=== PATIENT | male | born 1960 | race Caucasian/White ===

== ENCOUNTER 2020-02-26 12:00 | Outpatient (REF) | payer OTHER, SELFPAY ==
[2020-02-26 12:50] LABS: MANUAL DIFF FLAG NO
[2020-02-26 12:53] LABS: Basophils Absolute Auto 0.1 X10*3/uL (0.0-0.2); Basophils Percent Auto 0.5 % (0-2); Eosinophils Absolute Auto 0.1 X10*3/uL (0.0-0.4); Eosinophils Percent Auto 0.5 % (0-4); Hematocrit 44.2 % (42-52); Hemoglobin 15.3 g/dl (14.0-18.0); Imm Gran Abs Auto 0.06 X10*3/uL (0.00-0.03); Imm Gran Pct Auto 0.7 % (0.0-0.4); Lymphocytes Absolute Auto 1.7 X10*3/uL (1.2-4.9); Lymphocytes Percent Auto 18.7 % (20-40); Mean Corpuscular HGB Conc 34.6 g/dl (31.0-36.0); Mean Corpuscular Hemoglobin 32.5 pg (27.0-33.0); Mean Corpuscular Volume 93.8 fL (80-98); Mean Platelet Volume 10.2 fL (9.4-12.4); Monocytes Absolute Auto 0.8 X10*3/uL (0.1-1.2); Neutrophils Absolute Auto 6.5 X10*3/uL (2.0-8.3); Neutrophils Percent Auto 70.6 % (45-73); Platelet Count 251 X10*3/uL (160-400); Red Blood Count 4.71 X10*6/uL (4.60-5.80); Red Cell Distribution Width 12.8 % (11.0-16.0); White Blood Count 9.2 X10*3/uL (4.8-10.8)
[2020-02-26 13:44] LABS: Alanine Aminotransferase 27 U/L (0-40); Albumin Level 4.3 g/dL (3.5-5.0); Alkaline Phosphatase 80 U/L (39-117); Anion Gap 13 (12-20); Aspartate Amino Transferase 25 U/L (5-37); Bilirubin Total 0.2 mg/dL (0.0-1.0); Blood Urea Nitrogen 21 mg/dL (9-16); Calcium 9.1 mg/dL (8.4-10.2); Carbon Dioxide 25 mmol/L (22-29); Chloride 104 mmol/L (96-108); Cholesterol 143 mg/dL; Estimated Glomerular Filt Rate > 60; Glucose Fasting 112 mg/dL (60-99); HDL Cholesterol 65 mg/dL; LDL Cholesterol Calculated 73 mg/dl; Potassium 4.3 mmol/l (3.3-5.1); Sodium 138 mmol/L (135-145); Triglycerides 29 mg/dL
[2020-02-27 04:11] LABS: ~Hepatitis C Antibody Nonreactive (Nonreactive)
== END 2020-02-26 12:01 | disposition home or self-care (01) ==
LOC: HO.MANLDS 12:00
PROVIDERS: PCP Internal Medicine; Visit Provider Internal Medicine
DX: Z00.01 Encounter for general adult medical examination with abnormal findings (principal)
CPT/HCPCS: 36415; 80053; 80061; 84153; 85025; 86803

== ENCOUNTER 2021-12-09 10:41 | Outpatient (REF) | payer OTHER, SELFPAY ==
[2021-12-09 13:22] LABS: MANUAL DIFF FLAG NO
[2021-12-09 13:24] LABS: Basophils Absolute Auto 0.1 X10*3/uL (0.0-0.2); Basophils Percent Auto 0.7 % (0-2); Eosinophils Absolute Auto 0.1 X10*3/uL (0.0-0.4); Eosinophils Percent Auto 1.7 % (0-4); Hematocrit 40.3 % (42.0-52.0); Hemoglobin 13.6 g/dl (14.0-18.0); Imm Gran Abs Auto 0.05 X10*3/uL (0.00-0.03); Imm Gran Pct Auto 0.7 % (0.0-0.4); Lymphocytes Absolute Auto 2.1 X10*3/uL (1.2-4.9); Mean Corpuscular HGB Conc 33.7 g/dl (31.0-36.0); Mean Corpuscular Hemoglobin 31.7 pg (27.0-33.0); Mean Corpuscular Volume 93.9 fL (80.0-98.0); Mean Platelet Volume 9.9 fL (9.4-12.4); Monocytes Absolute Auto 0.6 X10*3/uL (0.1-1.2); Monocytes Percent Auto 8.8 % (2-11); Neutrophils Absolute Auto 4.3 x10*3/uL (2.0-8.3); Neutrophils Percent Auto 59.1 % (45-73); Platelet Count 292 X10*3/uL (160-400); Red Blood Count 4.29 X10*6/uL (4.60-5.80); Red Cell Distribution Width 12.9 % (11.0-16.0); White Blood Count 7.2 X10*3/uL (4.8-10.8)
[2021-12-09 14:09] LABS: Alanine Aminotransferase 21 U/L (0-40); Albumin Level 3.7 g/dL (3.5-5.0); Alkaline Phosphatase 81 U/L (39-117); Anion Gap 13 (12-20); Aspartate Amino Transferase 22 U/L (5-37); Bilirubin Total 0.3 mg/dL (0.0-1.0); Blood Urea Nitrogen 15 mg/dL (9-16); Calcium 8.7 mg/dL (8.4-10.2); Carbon Dioxide 26 mmol/L (22-29); Chloride 104 mmol/L (96-108); Cholesterol 127 mg/dL; Estimated Glomerular Filt Rate > 60; Glucose Fasting 101 mg/dL (60-99); HDL Cholesterol 47 mg/dL; LDL Cholesterol Calculated 75 mg/dl; Potassium 4.5 mmol/L (3.3-5.1); Sodium 138 mmol/L (135-145); Total Protein 6.4 g/dL (6.5-8.0); Triglycerides 28 mg/dL
[2021-12-09 14:28] LABS: Thyroid Stimulating Hormone 1.61 uIU/mL (0.32-4.0); Vitamin D 25-OH Total 28.2 ng/mL (>30)
== END 2021-12-09 10:42 | disposition home or self-care (01) ==
LOC: HO.MANLDS 10:41
PROVIDERS: Visit Provider Internal Medicine
DX: Z00.00 Encounter for general adult medical examination without abnormal findings (principal); Z12.5 Encounter for screening for malignant neoplasm of prostate; E78.00 Pure hypercholesterolemia, unspecified
CPT/HCPCS: 36415; 80053; 80061; 82306; 84153; 84443; 85025

== ENCOUNTER 2022-12-23 16:04 | Outpatient (REF) | payer OTHER, SELFPAY ==
[2022-12-23 17:41] LABS: MANUAL DIFF FLAG NO
[2022-12-23 18:05] LABS: Alanine Aminotransferase 33 U/L (0-40); Albumin Level 4.1 g/dL (3.5-5.0); Alkaline Phosphatase 76 U/L (39-117); Anion Gap 12 (12-20); Aspartate Amino Transferase 36 U/L (5-37); Bilirubin Total 0.7 mg/dL (0.0-1.0); Blood Urea Nitrogen 18 mg/dL (9-16); Calcium 9.3 mg/dL (8.4-10.2); Carbon Dioxide 27 mmol/L (22-29); Chloride 105 mmol/L (96-108); Cholesterol 143 mg/dL; Estimated Glomerular Filt Rate > 60; Glucose Random 76 mg/dL (60-115); HDL Cholesterol 77 mg/dL; LDL Cholesterol Calculated 61 mg/dl; Potassium 4.3 mmol/L (3.3-5.1); Sodium 140 mmol/L (135-145); Triglycerides 29 mg/dL
[2022-12-23 18:08] LABS: Basophils Absolute Auto 0.1 X10*3/uL (0.0-0.2); Basophils Percent Auto 0.5 % (0-2); Eosinophils Absolute Auto 0.1 X10*3/uL (0.0-0.4); Eosinophils Percent Auto 1.3 % (0-4); Hematocrit 43.1 % (42.0-52.0); Hemoglobin 14.7 g/dl (14.0-18.0); Imm Gran Abs Auto 0.05 X10*3/uL (0.00-0.03); Imm Gran Pct Auto 0.5 % (0.0-0.4); Lymphocytes Absolute Auto 2.6 X10*3/uL (1.2-4.9); Lymphocytes Percent Auto 27.4 % (20-40); Mean Corpuscular HGB Conc 34.1 g/dl (31.0-36.0); Mean Corpuscular Hemoglobin 32.2 pg (27.0-33.0); Mean Corpuscular Volume 94.5 fL (80.0-98.0); Mean Platelet Volume 10.5 fL (9.4-12.4); Monocytes Percent Auto 10.2 % (2-11); Neutrophils Absolute Auto 5.7 x10*3/uL (2.0-8.3); Neutrophils Percent Auto 60.1 % (45-73); Platelet Count 264 X10*3/uL (160-400); Red Blood Count 4.56 X10*6/uL (4.60-5.80); Red Cell Distribution Width 12.7 % (11.0-16.0); White Blood Count 9.5 X10*3/uL (4.8-10.8)
[2022-12-23 18:22] LABS: Prostate Specific Antigen 0.46 ng/mL (<0.05-4.0)
== END 2022-12-23 16:05 | disposition home or self-care (01) ==
LOC: HO.MANLDS 16:04
PROVIDERS: Visit Provider Internal Medicine
DX: E78.00 Pure hypercholesterolemia, unspecified (principal); I63.9 Cerebral infarction, unspecified
CPT/HCPCS: 36415; 80053; 80061; 84153; 85025

== ENCOUNTER 2024-07-12 10:44 | Outpatient (REF) | payer OTHER, SELFPAY ==
--- OUTSIDE RECORDS SUMMARY | 2024-07-12 12:51 | XMS_ITS | Data Portability ---
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 MUST MEET 2 OUT OF 3 ELEMENTS: PROBLEMS, DATA OR RISK ELEMENT 1: PROBLEMS 1 OR MORE CHRONIC ILLNESS W/SEVERE EXACERBATION, PROGRESSION MAY REQUIRE HOSPITAL LEVEL CARE OR 1 ACUTE OR CHRONIC ILLNESS OR INJURY THAT POSES A THREAT TO LIFE OR BODILY FUNCTION ELEMENT 2: DATA: MUST MEET 2 OF 3 CATEGORIES CATEGORY 1 REVIEW OF PRIOR EXTERNAL NOTES REVIEW OF THE RESULTS ORDERING OF EACH TEST ASSESSMENT REQUIRING INDEPENDENT HISTORIAN(S) CATEGORY 2: INDEPENDENT INTERPRETATION OF TESTS BY ANOTHER PROVIDER/SPECIALI ST CATEGORY 3: DISCUSSION OF MGT OR TEST INTERPRETATION W/EXTERNAL PHYSICIAN/SPECIAL IST ELEMENT 3: RISK HIGH RISK OF MORBIDITY FROM ADDITIONAL DIAGNOSTIC TESTING OR TREATMENT PROVIDER MUST THOROUGHLY DOCUMENT EACH ELEMENT THAT IS COVERED Not available 02/11/2024 12:00:05 03/06/2024 03/06/2024 [id number] [place] [id number]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 REVIEW OF PRIOR EXTERNAL NOTES/RESULTS, ORDERING OF TEST(S) CATEGORY 2. 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) MDM MODERATE MUST MEET 2 OUT OF 3 ELEMENTS: PROBLEMS, DATA OR RISK ELEMENT 1: PROBLEMS ADDRESSED 1 OR MORE CHRONIC ILLNESS WITH EXACERBATION OR 2 OR MORE STABLE CHRONIC ILLNESSES OR 1 UNDIAGNOSED NEW PROBLEM OR 1 ACUTE ILLNESS W/SYMPTOMS OR 1 ACUTE COMPLICATED INJURY ELEMENT 2: DATA MUST MEET 1 OF 3 CATEGORIES CATEGORY 1: REVIEW OF PRIOR EXTERNAL NOTES, REVIEW OF RESULTS, ORDERING OF EACH TEST, ASSESSMENT REQUIRING INDEPENDENT HISTORIAN OR CATEGORY 2: INDEPENDENT INTERPRETATION OF TESTS BY ANOTHER PHYSICIAN OR SPECIALIST OR CATEGORY 3: DISCUSSION OF MGT OR TEST INTERPRETATION W/EXTERNAL PHYSICIAN OR SPECIALIST ELEMENT 3: RISK RISK OF COMPLICATIONS AND/OR MORBIDITY OR MORTALITY OF PATIENT MANAGEMENT PROVIDER MUST THOROUGHLY DOCUMENT EACH ELEMENT THAT IS COVERED Not available 07/12/2024 10:37:32 Plan of Treatment Reminders Order Date Submit Date Provider Last Modified By Organization Details Last Modified Time Details Appointments FOLLOW UP 15 2024 10:15A M DR BALDWIN Not available Not available Not available ANNUAL EXAM 2024 09:30A M DR BALDWIN Not available Not available Not available Lab lipid panel, blood 2024 025 [facility], [address] [place] [address], [id number], 07/12/2024 10:43:35 CMP, serum or plasma 2024 025 [facility], [address] [place] [address], [id number], 07/12/2024 10:43:36 CBC w/ auto diff 2024 025 [facility], [address] [place] [address], [id number], 07/12/2024 10:43:36 PSA, serum or plasma 2024 025 [facility], [address] [place] [address], [id number], 07/12/2024 10:43:35 lipid panel, blood 2023 024 [facility], [address] [place] [address], [id number], 02/11/2024 12:00:23 CMP, serum or plasma 2023 024 [email or web address] 10 [facility], [address] [place] [address], [id number], 02/18/2024 08:40:10 CBC w/ auto diff 2023 024 [facility], [address] [place] [address], [id number], 02/11/2024 12:00:23 CMP, serum or plasma 2022 023 [facility], [address] [place] [address], [id number], 12/24/2022 11:54:30 lipid panel, blood 2022 023 [facility], [address] [place] [address], [id number], 12/24/2022 11:54:30 CBC w/ auto diff 2022 023 [facility], [address] [place] [address], [id number], 12/23/2022 16:05:26 PSA, serum or plasma 2022 023 [facility], [address] [place] [address], 64943, 12/24/2022 11:54:30 lipid panel, blood 2021 022 [facility], [address] [place] [address], [id number], 12/10/2021 12:53:29 lipid panel, blood 2021 023 [facility], [address] [place] [address], [id number], 12/10/2021 12:53:28 CMP, serum or plasma 2021 [facility], [address] [place] [address], [id number], 12/10/2021 12:53:28 CBC w/ auto diff 2021 [facility], [address] [place] [address], 51498, 12/10/2021 12:53:29 PSA, serum or plasma 2021 [email or web address] 10 [facility], [address] [place] [address], 53483, 12/16/2021 08:35:12 vitamin D, 25-hydrox y, total, serum 2021 [facility], [address] [place] [address], [id number], 12/10/2021 12:53:29 TSH, serum or plasma 2021 [facility], [address] [place] [address], [id number], 12/09/2021 10:40:33 Referral None recorded. Procedures None recorded. Surgeries None recorded. Imaging XR, hip, unilatera l, 2 or 3 view 2023 024 [email or web address] Not available 02/25/2024 08:37:40 Medication Orders trazodone 50 mg tablet 2023 024 [id number], [address] [place], [address], 07/12/2024 10:35:17 trazodone 50 mg tablet 2023 024 [id number], [address] [place] [address], [id number], 07/12/2024 10:35:17 lorazepam 0.5 mg tablet 2023 025 [id number], [address] [place], [address], 07/12/2024 10:14:20 Nicorette 4 mg gum 2022 [address]23 [address] [id number] [address] [place], [address], 03/06/2024 12:02:13 Nicorette 4 mg buccal lozenge 2022 [id number], [address] [place], [address], 03/06/2024 12:02:07 Patient TargetsNo targets recorded. Patient Instructions Encounter Date Encounter Id Patient Instructions Last Modified By Organization Details Last Modified Time 12/23/2022 [id number] stroke: care instructions Not available 12/23/2022 16:00:31 Reason for Referral None Reported. Results Created Date Observation Date Name Description Value Unit Range Abnormal Flag Note LastModifiedBy Organization Detail LastModifiedTime Result Notes None recorded. Problems Name Problem SNOMED Code Status Onset Date Resolution Date Notes Provider Name and Address Organization Details Recorded Time Cerebrov ascular accident 258131441 Active 2017 R hempisher ic Not Available [facility] 0 10:31:20 Tobacco user 961479427 Active 2017 Not Available [facility] 0 10:31:20 Anxiety 14009814 Active 2017 Not Available [facility] 0 10:31:20 Bursitis of shoulder 291776694 Active 2017 Not Available [facility] 0 10:31:20 Hypercho lesterol emia 40023136 Active 2017 Not Available [facility] 0 10:31:20 Family history of malignan t neoplasm of lung 114897317 Active 2017 Not Available [facility] 0 10:31:20 Pain of right ankle joint 81207075440 835862 Active 2017 Not Available [facility] 0 10:31:20 Adult hydrocel e 57035001342 105 Active 2017 Not Available [facility] 0 10:31:20 Onychomy cosis of toenails 251085149 Active 2021 Lon Baldwin, DO [address] [place] [address], [phone], [facility] 2 10:36:36 Pain in right hip joint 70333711281 9102 Active 2023 Lon BaldwinDO [address] [place] [address], [phone], [facility] 4 11:57:03 Problem Notes None recorded. Procedures Surgical History Date Name Laterality Status Provider Name and Address Organization Details Recorded Time 3 Colonoscopy completed Saritha Sun [facility] 02/01/2018 08:22:32 Imaging Results None recorded. Procedure Notes None recorded. Medical Equipment None Reported. Allergies Allergen ID Allergen Name Allergen Category Reaction Reaction Severity Criticality Documentation Date Start Date Code Code System Note Provider Name and Address Organization Details Recorded Time 5914 diclofena c Not available itching Not available Not available 12/09/2021 3355 RxNorm Lon BaldwinDO [address] [place], [address], [facility] Internal [facility] 2 09:55:29 Medications Name Sig Start Date Stop Date Status Note LastModified by Organization Details LastModified Time atorvastati n 80 mg tablet TAKE 1 TABLET BY MOUTH EVERY DAY active Not Available Not Available No t Available trazodone 50 mg tablet TAKE 1.5 TABLETS BY MOUTH EVERY DAY 07/12 completed Not Available Not Available Not Available polyethylen e glycol 3350 17 gram oral powder packet 02/07 completed Not Available Not Available Not Available aspirin 325 mg tablet Take 1 tablet every day by oral route. active Not Available Not Available No t Available terbinafine HCl 250 mg tablet TAKE 1 TABLET BY MOUTH EVERY DAY FOR 30 DAYS 03/06 completed Not Available Not Available Not Available amoxicillin 875 mg tablet TAKE 1 TABLET BY MOUTH TWICE A DAY UNTIL FINISHED 12/09 completed Not Available Not Available Not Available lorazepam 0.5 mg tablet TAKE 1 TABLET BY MOUTH TWICE A DAY NEEDED FOR 7 DAYS 07/12 completed Not Available Not Available Not Available nicotine (polacrilex ) 4 mg gum CHEW 1 PIECE OF GUM BY MOUTH EVERY 2 HOURS FOR 30 DAYS 03/06 completed Not Available Not Available Not Available diclofenac sodium 75 mg tablet,usama yed release Take 1 tablet twice a day by oral route with meals for 30 days. 12/09 completed Not Available Not Available Not Available oxycodone 5 mg tablet 02/07 completed Not Available Not Available Not Available nicotine (polacrilex ) 4 mg buccal lozenge DISSOVE 1 LOZENGE EVERY 2 HOURS NEEDED 03/06 completed Not Available Not Available Not Available cyclobenzap rine 5 mg tablet Take 1 tablet 3 times a day by oral route as needed for 30 days. 12/09 completed Not Available Not Available Not Available CoQ10 active Not Available Not Availa ble Not Available vilazodone 10 mg tablet 1 po qd 07/12 completed Not Available Not Available Not Available [employer] Formula active Not Available Not Available Not Available Flucelvax Quad (PF) 60 mcg (15 mcg x 4)/0.5 mL IM syringe 02/01 completed Not Available Not Available Not Available Flucelvax Quad (PF) 60 mcg (15 mcg x 4)/0.5 mL IM syringe 02/07 completed Not Available Not Available Not Available Flucelvax Quad (PF) 60 mcg (15 mcg x 4)/0.5 mL IM syringe 11/12 completed Not Available Not Available Not Available Vitals Date Recorded Body height Body mass index (BMI) Body weight Heart rate Oxygen saturation Oxygen saturation in Arterial blood by Pulse oximetry Systolic blood pressure Diastolic blood pressure Provider Name and Address Organization Details Last Updated DateTime 2 180.34 cm 27.9 kg/m2 90716.7 6 g 58 /min 98 % 98 % 140 mm[Hg] 74 mm[Hg] Lon Baldwin, DO [address] [facility], [place], [address] [facility] 2 09:58:07 Date Recorded Body height Body mass index (BMI) Body weight Heart rate Oxygen saturation Oxygen saturation in Arterial blood by Pulse oximetry Systolic blood pressure Diastolic blood pressure Provider Name and Address Organization Details Last Updated DateTime 3 180.34 cm 27.8 kg/m2 63481.8 8 g 64 /min 96 % 96 % 140 mm[Hg] 80 mm[Hg] Estrella Bahena [facility] 3 15:20:58 Date Recorded Body height Body mass index (BMI) Body weight Heart rate Oxygen saturation Oxygen saturation in Arterial blood by Pulse oximetry Systolic blood pressure Diastolic blood pressure Provider Name and Address Organization Details Last Updated DateTime 4 180.34 cm 24.7 kg/m2 92953.8 5 g 84 /min 97 % 97 % 120 mm[Hg] 80 mm[Hg] Estrella Bahena [facility] 4 11:38:11 Date Recorded Body height Body mass index (BMI) Body weight Heart rate Oxygen saturation Oxygen saturation in Arterial blood by Pulse oximetry Systolic blood pressure Diastolic blood pressure Provider Name and Address Organization Details Last Updated DateTime 4 180.34 cm 25 kg/m2 75243.0 3 g 84 /min 99 % 99 % 152 mm[Hg] 96 mm[Hg] Jonnathan Bryant [facility] 4 12:04:03 Date Recorded Systolic blood pressure Diastolic blood pressure Provider Name and Address Organization Details Last Updated DateTime 03/06/2024 136 mm[Hg] 76 mm[Hg] Lon Baldwin, DO [address] [facility], [place], [address], [facility] 03/06/2024 12:21:24 Date Recorded Body height Body mass index (BMI) Body weight Heart rate Oxygen saturation Oxygen saturation in Arterial blood by Pulse oximetry Systolic blood pressure Diastolic blood pressure Provider Name and Address Organization Details Last Updated DateTime 5 180.34 cm 24.1 kg/m2 18721.4 g 62 /min 97 % 97 % 134 mm[Hg] 82 mm[Hg] Diandra Arredondo [facility] 5 10:18:43 Social History Question Answer Notes LastModified by [facility] Details LastModified Time Tobacco Smoking Status Current Every Day Smoker Saritha Sun [facility] 02/01/2018 10:25:34 What Is Your Level Of Alcohol Consumption? Moderate 2 6 Packs Per Week Information not available 02/01/2018 What Is Your Level Of Caffeine Consumption? Heavy 1 Pot Of Coffee Per Day Information not available 02/01/2018 What Was The Date Of Your Most Recent Tobacco Screening? 07/12/2024 [email or web address] Information not available 07/12/2024 How Much Tobacco Do You Smoke? 1 PPD 8 [employer] Avg. Daily [email or web address] Information not available 03/06/2024 Do You Or Have You Ever Used Any Other Forms Of Tobacco Or Nicotine? No [email or web address] Information not available 12/23/2022 Sex: Unknown Functional Status Question Answer Note LastModified by [employer] Details LastModified Time What is your exercise level? Occasional Information not available 02/01/2018 Mental Status None recorded. Family History Nothing Reported. Medical History No medical history recorded. Immunizations Vaccine Type Date Status Note Provider Nam e and Address Organization Details Recorded Time Influenza, split virus, quadrivalent, preservative 1 completed Crissy Xie [facility] 03/26/2021 08:29:18 Influenza, split virus, quadrivalent, preservative 0 completed Lon Baldwin DO [address] [place] [address], [phone], [facility] 03/02/2020 09:32:07 zoster recombinant [address] [facility] 03/22/2020 10:38:16 COVID-19, mRNA, LNP-S, PF, 100 mcg/0.5mL dose or 50 mcg/0.25mL dose 1 completed TAE PATEL [address] [place] [address], [address], [facility] 08/29/2020 17:42:21 COVID-19, mRNA, LNP-S, PF, 100 mcg/0.5mL dose or 50 mcg/0.25mL dose completed Lon Baldwin DO [address] [facility], [place], [address], [facility] 09/26/2020 15:17:46 Past Encounters Encounter ID Performer Location Encounter Start Date Encounter Closed Date Diagnosis/Indication Diagnosis SNOMED-CT Code Diagnosis ICD10 Code Diagnosis Note [id number] Lon Baldwin DO [facility] [address] [facility],[place] [address] 02/01/2018 10:12:41 02/01/2018 11:09:48 Adult health examination 061763222 Z00.00 has noted increase in size of hydrocele will send to dr taveras for evshravan who has seen him in past Active or passive immunization 781633101 Z23 will get at work flu shot Adult hydrocele 05172491 11 9105 N43.3 refer [id number] Lon Baldwin DO [facility] [address] [facility],[place] [address] 02/07/2019 10:20:12 02/07/2019 11:29:42 Adult health examination 177792693 Z00.00 doing well and is feeling ok except for his left ankle area pt wishes to hold off and will let me know when hes ready to look into Active or passive immunization 393230820 Z23 will get at work flu shot [id number] TAE PATEL [facility] [address] [place] [address],[place] [address] 11/13/2019 15:56:01 11/13/2019 16:20:59 Pain in left lower limb 023367767 M79.605 hx of stroke and clotting as well as old injury to lower leg when he was 13 will check both US and XR to see if there is any underlying pathology [id number] Lon Baldwin DO [facility] [address] [facility],[place] [address] 02/26/2020 11:13:53 02/26/2020 12:08:17 Active or passive immunization 032028328 Z23 at work flu shot Adult heal th examination 840255026 Z00.01 doing well and is feeling ok except for his left ankle area willl need lab work done thisvisit pt wishes to hold off and will let me know when hes ready to look into Screening for malignant neoplasm of colon 579709437 Z12.11 Anterior c hest wall pain 907123817 R07.89 [id number] TAE PATEL [facility] [address] [facility] [address] 03/28/2021 10:59:01 03/28/2021 16:50:20 Lumbago with sciatica 293871160 M54.41 will give medication s to use PRN for next flare up he has Hypertensive disorder 38 506621 I10 BP recheck in the right arm sitting was 138/80 [id number] Lon Baldwin [facility] [address] [facility], [place] [address] 12/09/2021 09:50:38 12/09/2021 10:47:56 Active or passive immunization 275717325 Z23 advised he is due for Tdap will consider Adult heal th examination 989340717 Z00.00 doing well and is feeling ok except for his left ankle area will need lab work done this visit pt wishes to hold off and will let me know when hes ready to look into Hypercholesterolemia 136 13118 E78.00 [id number] Lon Baldwin DO [facility] [address] [facility], [place] [address] 12/23/2022 14:49:23 12/23/2022 16:39:26 Hypercholesterolemia 89098270 E78.00 Tobacco user 871054485 Z 72.0 Cerebrovas cular accident 405332523 I63.9 [id number] Lon Baldwin [facility] [address] [facility], [place] [address] 02/11/2024 11:31:43 02/11/2024 14:52:40 Active or passive immunization 288633838 Z23 advised he is due for Tdap will consider Adult heal th examination 499491165 Z00.00 doing well and is feeling ok except for his left ankle area will need lab work done this visit pt wishes to hold off and will let me know when hes ready to look into Depression screening 171 854057 Z13.31 positiveun dash a great deal of stress at work has no help he had 5 pople undr him working and now has only 1/2 a peron at nightnow 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 Hypercholesterolemia 136 20830 E78.00 Anxiety 13382943 F41.9 Pain in ri ght hip joint 7111977076 18685 M25.551 [id number] Lon Baldwin DO [facility] [address] [facility],[place] [address] 03/06/2024 11:50:45 03/06/2024 15:01:05 Depression screening 935600564 Z13.31 doing great will increase to 75mg priorposit iveunder a great deal of stress at work has no help he had 5 pople undr him working and now has only 1/2 a peron at nightnow 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 [id number] Lon Baldwin DO [facility] [address] [facility],[address] [facility] [place] [address] 07/12/2024 09:55:30 07/12/2024 12:25:30 Depression screening 284927805 Z13.31 he has decided to stop his meds already didwe will not renew but told him any problems to call and we can restart Hypercholesterolemia 136 16553 E78.00 labnow Anxiety 09648158 F41.9 has a prn med not using but will follow Pain in ri ght hip joint 4793202750 62346 M25.551 he is dealing with this and treating conserv will call if this worsens Health Concerns Section Related Observation LastModified by Organization Detai ls LastModified Time None Recorded Concern Status LastModified by Organization Details LastModified Time None Recorded Advance Directives Directive None Recorded Payers Encounter Date Sequence Insurance Name Policy Number Policy Cat Covered Member ID Cat Member ID Guarantor Name 12/09/2021 1 [facility] [id number] 1 Duane Denise [id number] Duane Denise 12/23/2022 1 [facility] [id number] 1 Duane Denise [id number] Duane Denise 02/11/2024 1 [facility] [id number] 1 Duane Clancyneuf [id number] Duane Clancynemary 03/06/2024 1 [facility] [id number] 1 Duane Redmond Phaneuf [id number] Duane Redmond Phaneuf 07/12/2024 1 [facility] [id number] 1 Duane Clancynemary [id number] Duane Clancydanielmary Notes Date Note Type Note Provider Name a nd Address Organization Details Recorded Time 2 text/html Annual WellnessReported bypatient.Diet and Nutrition:healthy diet Fracture Risk:no history of fractures; no recent explained fracture; no sudden unexplained fractures; no previous musculoskeletal injuries Physical Activity:exercises on a regular basis; recent increase in physical activity; good physical condition Additional Lifestyle Factors:no tobacco use; no alcohol intake; stopped drinking alcohol Depression Risk:never feels sad, empty, or tearful; no loss of interest in activities; no significant changes in weight; no sleep disturbances or insomnia; no agitation; no loss of energy; no feelings of worthlessness or guilt; no thoughts of suicide; no history of depression; no history of mood disorders Hearing:no loss of hearing Vision:no vision problems here for cpe feeling goodno cp no sobappetite goodsleep is goodbowels goodbladder is ok Lon Baldwin DO [address] [place] [address], [address], [facility] 12/09/2021 10:36:04 3 text/html here for recjhedmond been having a lot of arthritis type pain and joint painthis has been more problematic and it has affected his working full day at work Lon Baldwin DO [address] [place] [address], [phone], [facility] 12/23/2022 16:02:09 4 text/html Annual WellnessReported bypatient.Diet and Nutrition:healthy diet Fracture Risk:no history of fractures; no recent explained fracture; no sudden unexplained fractures; no previous musculoskeletal injuries Physical Activity:exercises on a regular basis; recent increase in physical activity; good physical condition Additional Lifestyle Factors:no tobacco use; no alcohol intake; stopped drinking alcohol Depression Risk:never feels sad, empty, or tearful; no loss of interest in activities; no significant changes in weight; no sleep disturbances or insomnia; no agitation; no loss of energy; no feelings of worthlessness or guilt; no thoughts of suicide; no history of depression; no history of mood disorders Hearing:no loss of hearing Vision:no vision problems Lon Baldwin DO [address] [place], [address], [facility] 02/11/2024 12:01:03 4 text/html here nfor rechk and is doing ok traz works goodsleeps well and mood better anxiety less barely uses lorazepam Lon Baldwin DO [address] [place], [address], [facility] 03/06/2024 12:23:11 5 text/html heref or rechkdoing ok but still having occ issues with hipocc the arthritis will become too painful and would have to leave work earlier than usual otherwise he is status quono cp no sobbowels ok bladder ok Lon Baldwin DO [address] [place], [address], [facility] 07/12/2024 10:40:33
[2024-07-12 13:20] LABS: MANUAL DIFF FLAG NO
[2024-07-12 13:45] LABS: Basophils Absolute Auto 0.1 X10*3/uL (0.0-0.2); Basophils Percent Auto 0.9 % (0-2); Eosinophils Absolute Auto 0.2 X10*3/uL (0.0-0.4); Eosinophils Percent Auto 2.3 % (0-4); Hematocrit 43.1 % (42.0-52.0); Hemoglobin 14.7 g/dl (14.0-18.0); Imm Gran Abs Auto 0.05 X10*3/uL (0.00-0.03); Imm Gran Pct Auto 0.5 % (0.0-0.4); Lymphocytes Absolute Auto 1.8 X10*3/uL (1.2-4.9); Lymphocytes Percent Auto 17.1 % (20-40); Mean Corpuscular HGB Conc 34.1 g/dl (31.0-36.0); Mean Corpuscular Hemoglobin 33.1 pg (27.0-33.0); Mean Corpuscular Volume 97.1 fL (80.0-98.0); Neutrophils Absolute Auto 7.1 x10*3/uL (2.0-8.3); Neutrophils Percent Auto 69.2 % (45-73); Platelet Count 267 X10*3/uL (160-400); Red Blood Count 4.44 X10*6/uL (4.60-5.80); White Blood Count 10.3 X10*3/uL (4.8-10.8)
[2024-07-12 14:16] LABS: Alanine Aminotransferase 24 U/L (0-40); Alkaline Phosphatase 85 U/L (39-117); Anion Gap 11 (12-20); Aspartate Amino Transferase 33 U/L (5-37); Bilirubin Total 0.3 mg/dL (0.0-1.0); Blood Urea Nitrogen 18 mg/dL (9-16); Calcium 9.5 mg/dL (8.4-10.2); Carbon Dioxide 28 mmol/L (22-29); Chloride 107 mmol/L (96-108); Cholesterol 142 mg/dL (<200); Estimated Glomerular Filt Rate > 60; Glucose Random 105 mg/dL (60-115); HDL Cholesterol 69 mg/dL (>40); LDL Cholesterol Calculated 68 mg/dL (<100); Potassium 4.5 mmol/L (3.3-5.1); Sodium 141 mmol/L (135-145); Triglycerides 29 mg/dL (<150)
[2024-07-12 14:19] LABS: Prostate Specific Antigen 1.17 ng/mL (<0.05-4.0)
== END 2024-07-12 10:45 | disposition home or self-care (01) ==
LOC: HO.MANLDS 10:44
PROVIDERS: Visit Provider Internal Medicine
DX: E78.00 Pure hypercholesterolemia, unspecified (principal); Z12.5 Encounter for screening for malignant neoplasm of prostate
CPT/HCPCS: 36415; 80053; 80061; 84153; 85025